=== PATIENT | female | born 1990 | race Caucasian/White ===

== ENCOUNTER 2018-05-14 02:34 | Emergency (ER) | payer BC ==
[~2018-05-14] VITALS: Ht 172.7 cm; Wt 136.1 kg
[~2018-05-14 02:34] MED LIST: CYCLOBENZAPRINE10 MG PO; GUIATUSS AC SY120 ML PO; IBUPROFEN200 MG PO; IBUPROFEN600 MG PO; NEURONTIN100 MG PO; NEXPLANON68 MG SQ; NORCO 5-325 TA1 EACH PO; TIZANIDINE HCL2 M1 PO; ZESTORETIC 20-251 EA PO
[2018-05-14] MEDS ORDERED: NORVASC2.5 MG (02:50)
== END 2018-05-14 03:28 | disposition home or self-care (01) ==
LOC: ED 02:34
PROC: 0HQDXZZ Repair Right Lower Arm Skin, External Approach (ICD-10-PCS; principal; 2018-05-14)
DX: S51.811A Laceration without foreign body of right forearm, initial encounter (principal); I10 Essential (primary) hypertension; F17.200 Nicotine dependence, unspecified, uncomplicated; Z79.899 Other long term (current) drug therapy; Z23 Encounter for immunization; W27.8XXA Contact with other nonpowered hand tool, initial encounter; Y93.89 Activity, other specified
CPT/HCPCS: 12002; 90471; 90715; 99282